=== PATIENT | female | born 1985 | race African-American/Black ===

== ENCOUNTER 2018-08-23 10:14 | Emergency (ER) | payer MEDICAID, OTHER ==
[~2018-08-23] VITALS: Ht 160 cm; Wt 64.0 kg
--- NOTE | 2018-08-23 10:58 | NUR ---
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
--- NOTE | 2018-08-23 11:06 | NUR ---
PT PRESENTED TO ED WITH MID STERNAL CHEST PAIN SINCE TODAY. PT A&OX4. PT WITH HX: PERICARDITIS A FEW MONTHS AGO. PT PLACED IN ROOM AND PLACED ON BP, CARDIAC AND CONT. PULSE OXIMETER. PT STATES PAIN WITH DEEP INSPIRATION. ASSESSMENT COMPLETED. AWAITING MD. REPORT GIVEN TO TELLO CARBAJAL.
[2018-08-23 11:21] LABS: BASOPHILS # (AUTO) 0.05 x10^3/uL (0-0.1); BASOPHILS % (AUTO) 1 % (0-1); EOSINOPHILS # (AUTO) 0.11 x10^3/uL (0-0.4); EOSINOPHILS % (AUTO) 1 % (1-7); LYMPHOCYTES # (AUTO) 2.06 x10^3/uL (1-3.4); LYMPHOCYTES % (AUTO) 23 % (22-44); MD NO; MEAN CORPUSCULAR HGB CONC 33.9 g/dL (32.4-35.8); MEAN CORPUSCULAR VOLUME 91.4 fL (80-100); MEAN PLATELET VOLUME 7.6 fL (7.4-10.4); MONOCYTES % (AUTO) 6 % (2-9); NEUTROPHILS # (AUTO) 6.28 x10^3/uL (1.8-6.8); NEUTROPHILS % (AUTO) 70 % (42-75); PLATELET COUNT 321 x10^3/uL (130-400); RED CELL DISTRIBUTION WIDTH 12.8 % (9.6-15.2)
[2018-08-23 11:25] LABS: ALBUMIN 4.1 g/dL (3.4-5.0); ANION GAP 7 mmol/L (5-15); CALCIUM 8.7 mg/dL (8.5-10.1); CHLORIDE 110 mmol/L (98-107); CREATININE 0.95 mg/dL (0.55-1.02)
[2018-08-23 11:28] LABS: TROPONIN I < 0.015 ng/mL (0.000-0.045)
[2018-08-23] MEDS ORDERED: CYCLOBENZAPRINE 10 MG TABLET PO ONE (11:30)
[2018-08-23] MEDS ORDERED: KETOROLAC 30 MG/1 ML IM ONE (11:30)
[2018-08-23] MEDS ORDERED: KETOROLAC 30 MG/1 ML ONE (11:36)
[2018-08-23] MEDS ORDERED: CYCLOBENZAPRINE 10 MG TABLET ONE (11:36)
[2018-08-23 12:50] VITALS: BP 104/62
== END 2018-08-23 12:52 | disposition home or self-care (01) ==
LOC: ED 12:24
DX: R07.89 Other chest pain (principal); Z87.891 Personal history of nicotine dependence
CPT/HCPCS: 36415; 71045; 80048; 82040; 84484; 85025; 93005; 96372; 99284; J1885

== ENCOUNTER 2018-11-25 23:20 | Emergency (ER) | payer OTHER ==
--- NOTE | 2018-11-25 23:38 | NUR ---
PT SITTING UP ON EDGE OF BED CRYING. GOT HOME FROM WORK TONIGHT AND DEVELOPED MIDSTERNAL CHEST PAIN RADIATING UNDER LEFT BREAST. STATES SHE WAS AT [facility] IN APRIL WITH ENDOCARDITIS. PT PLACED ON COMMUNICATION COORDINATOR Addendum: 11/25/18 at 2342 by FRANK ERROR WITH PREVIOUS CHARTING PT WAS AT [facility] WITH PERICARDITIS.
[2018-11-25] MEDS ORDERED: LORazepam 2 MG/ML, 1ML ONE (23:49)
[2018-11-25] MEDS ORDERED: KETOROLAC 30 MG/1 ML ONE (23:49)
[2018-11-26] MEDS ORDERED: LORazepam 2 MG/ML, 1ML IVPush ONE
[2018-11-26] MEDS ORDERED: KETOROLAC 30 MG/1 ML IVPush ONE
--- NOTE | 2018-11-26 00:02 | NUR ---
PT MEDICATED PER EMAR.
[2018-11-26 00:18] LABS: BASOPHILS # (AUTO) 0.03 x10^3/uL (0-0.1); BASOPHILS % (AUTO) 0 % (0-1); EOSINOPHILS # (AUTO) 0.15 x10^3/uL (0-0.4); EOSINOPHILS % (AUTO) 1 % (1-7); LYMPHOCYTES # (AUTO) 2.46 x10^3/uL (1-3.4); LYMPHOCYTES % (AUTO) 20 % (22-44); MD NO; MEAN CORPUSCULAR HEMOGLOBIN 31.4 pg (27.0-34.8); MEAN CORPUSCULAR HGB CONC 33.1 g/dL (32.4-35.8); MEAN CORPUSCULAR VOLUME 94.7 fL (80-100); MEAN PLATELET VOLUME 7.8 fL (7.4-10.4); MONOCYTES # (AUTO) 0.63 x10^3/uL (0.2-0.8); MONOCYTES % (AUTO) 5 % (2-9); NEUTROPHILS % (AUTO) 73 % (42-75); PLATELET COUNT 238 x10^3/uL (130-400); RED BLOOD COUNT 4.93 x10^6/uL (3.82-5.3)
--- NOTE | 2018-11-26 00:48 | NUR ---
PT SLEEPING. VSS.
[2018-11-26 00:52] LABS: ALANINE AMINOTRANSFERASE 21 U/L (12-78); ANION GAP 7 mmol/L (5-15); CALCIUM 8.4 mg/dL (8.5-10.1); CHLORIDE 110 mmol/L (98-107)
[2018-11-26 01:09] LABS: ALKALINE PHOSPHATASE 38 U/L (45-117); BILIRUBIN,TOTAL 0.2 mg/dL (0.2-1.0); CREATININE 1.07 mg/dL (0.55-1.02); TOTAL PROTEIN 6.8 g/dL (6.4-8.2); TROPONIN I < 0.015 ng/mL (0.000-0.045)
[2018-11-26 02:47] VITALS: BP 116/64
== END 2018-11-26 02:48 | disposition home or self-care (01) ==
LOC: ED 23:35
DX: R07.89 Other chest pain (principal); F41.1 Generalized anxiety disorder; F17.200 Nicotine dependence, unspecified, uncomplicated
CPT/HCPCS: 36415; 71045; 80053; 83690; 84484; 84703; 85025; 93005; 96374; 96375; 99284; J1885; J2060

== ENCOUNTER → 2020-05-26 | Outpatient (CLI) | payer OTHER ==
[~2020-05-26] MED LIST: MULT-516 PO
== END | disposition home or self-care (01) ==
LOC: STAR 08:44
PROVIDERS: ATTEND Obstetrics & Gynecology Female Pelvic Medicine and Reconstructive Surgery
DX: Z20.828 Contact with and (suspected) exposure to other viral communicable diseases (principal); N94.10 Unspecified dyspareunia; R10.2 Pelvic and perineal pain; N94.6 Dysmenorrhea, unspecified; N93.9 Abnormal uterine and vaginal bleeding, unspecified; D25.0 Submucous leiomyoma of uterus
CPT/HCPCS: 87635

== ENCOUNTER 2020-05-31 06:35 | Day surgery (SDC) | payer OTHER ==
[~2020-05-31] VITALS: Ht 162.6 cm; Wt 65.4 kg
[~2020-05-31 06:35] MED LIST changes: +BUPIVACAINE/PF 0.25% ONE
[2020-05-31 07:36] VITALS: BP 121/84
[2020-05-31] MEDS ORDERED: CHLORHEXIDINE 15 ML UDC ONE (07:40)
[2020-05-31] MEDS ORDERED: CHLORHEXIDINE 15 ML UDC MM ONE (08:00)
[2020-05-31] MEDS ORDERED: LACTATED RINGERS 1,000 ML IV SCH (08:00)
[2020-05-31 08:31] LABS: HCG UR SG 1.023 (1.003-1.030)
[2020-05-31] MEDS ORDERED: FENTANYL PF 250 MCG/5ML ONE (09:24)
[2020-05-31] MEDS ORDERED: MIDAZOLAM 1 MG/ML, 2ML ONE (09:24)
[2020-05-31] MEDS ORDERED: LORazepam 2 MG/ML, 1ML IVPush PRN (10:30)
[2020-05-31] MEDS ORDERED: ONDANSETRON 2MG/ML, 2ML IVPush PRN (10:30)
[2020-05-31] MEDS ORDERED: PROMETHAZINE 25 MG SUPP PR PRN (10:30)
[2020-05-31] MEDS ORDERED: PROMETHAZINE 25 MG/ML, 1ML IVPush PRN (10:30)
[2020-05-31] MEDS ORDERED: HYDROmorphone 1 MG/ML, 1ML INJ IVPush PRN (10:30)
[2020-05-31] MEDS ORDERED: ACETAMINOPHEN 325 MG TABLET PO PRN (10:30)
[2020-05-31] MEDS ORDERED: DEXAMETHASONE 4 MG/ML, 1ML ONE (10:49)
[2020-05-31] MEDS ORDERED: GLYCOPYRROLATE 0.2MG/1ML, 5ML ONE (10:49)
[2020-05-31] MEDS ORDERED: NEOSTIGMINE 1 MG/ML, 10ML ONE (10:49)
[2020-05-31] MEDS ORDERED: PROPOFOL 10 MG/ML, 20ML ONE (10:49)
[2020-05-31] MEDS ORDERED: ONDANSETRON 2MG/ML, 2ML ONE ×2 (10:49→11:11)
[2020-05-31] MEDS ORDERED: SUCCINYLCHOLINE 20 MG/ML, 10ML ONE (10:49)
[2020-05-31] MEDS ORDERED: CEFAZOLIN 1,000 MG ONE (10:49)
[2020-05-31] MEDS ORDERED: ROCURONIUM 10MG/ML,5ML ONE (10:49)
[2020-05-31] MEDS ORDERED: FENTANYL PF 100 MCG/2ML ONE ×2 (11:20→11:47)
[2020-05-31] MEDS: FENTANYL PF 100 MCG/2ML IV PRN ×3 (11:22→11:49)
[2020-05-31] MEDS ORDERED: METHOCARBAMOL 1,000 MG in DEXTROSE 5% 100 ML IV PRN (11:30)
[2020-05-31] MEDS ORDERED: ACETAMINOPHEN 650 MG/20.3 ML UDC ONE (11:37)
[2020-05-31] MEDS ORDERED: OXYcodone 5 MG/5 ML ORAL.SOL UDC ONE (11:38)
[2020-05-31] MEDS: OXYcodone 5 MG/5 ML ORAL.SOL UDC PO PRN ×2 (11:40→15:46)
[2020-05-31] MEDS ORDERED: KETOROLAC 30 MG/1 ML ONE (11:56)
[2020-05-31] MEDS ORDERED: KETOROLAC 30 MG/1 ML IVPush PRN (12:00)
== END 2020-05-31 18:55 | disposition home or self-care (01) ==
LOC: OUT 06:35
PROVIDERS: ATTEND Obstetrics & Gynecology Female Pelvic Medicine and Reconstructive Surgery
DX: D25.1 Intramural leiomyoma of uterus (principal); N92.1 Excessive and frequent menstruation with irregular cycle; N94.6 Dysmenorrhea, unspecified; N72 Inflammatory disease of cervix uteri; N88.8 Other specified noninflammatory disorders of cervix uteri; N81.89 Other female genital prolapse; N73.6 Female pelvic peritoneal adhesions (postinfective); N94.10 Unspecified dyspareunia; R10.2 Pelvic and perineal pain; Z98.890 Other specified postprocedural states
CPT/HCPCS: 58552; 81025; 88307; J0690; J1100; J1170; J1885; J2250; J2405; J2704; J2710; J2800; J3010; J7120; J0330

== ENCOUNTER 2020-07-06 12:41 | Emergency (ER) | payer OTHER ==
[~2020-07-06] VITALS: Ht 160 cm; Wt 65.0 kg
[~2020-07-06 12:41] MED LIST changes: -BUPIVACAINE/PF 0.25% ONE
[2020-07-06 13:42] LABS: BASOPHILS % (AUTO) 1 % (0-1); EOSINOPHILS % (AUTO) 3 % (1-7); LYMPHOCYTES % (AUTO) 30 % (22-44); MEAN CORPUSCULAR HEMOGLOBIN 30.6 pg (27.0-34.8); MEAN CORPUSCULAR HGB CONC 32.9 g/dL (32.4-35.8); MEAN PLATELET VOLUME 7.2 fL (7.4-10.4); MONOCYTES % (AUTO) 4 % (2-9); NEUTROPHILS % (AUTO) 62 % (42-75); PLATELET COUNT 338 x10^3/uL (130-400); RED BLOOD COUNT 4.45 x10^6/uL (3.82-5.3); RED CELL DISTRIBUTION WIDTH 12.1 % (9.6-15.2)
[2020-07-06 13:44] LABS: MD NO
[2020-07-06 13:49] LABS: ANION GAP 5 mmol/L (5-15); CALCIUM 8.9 mg/dL (8.5-10.1); CHLORIDE 110 mmol/L (98-107)
[2020-07-06 13:53] LABS: ALANINE AMINOTRANSFERASE 18 U/L (12-78); ALKALINE PHOSPHATASE 51 U/L (45-117); BILIRUBIN,TOTAL 0.3 mg/dL (0.2-1.0); CREATININE 1.01 mg/dL (0.55-1.02); TOTAL PROTEIN 7.3 g/dL (6.4-8.2)
--- NOTE | 2020-07-06 17:27 | NUR ---
center lead consultant: pt from lobby to 28
[2020-07-06] MEDS ORDERED: MORPHINE SULFATE 4 MG/ML, 1ML ONE ×2 (17:58→19:54)
[2020-07-06] MEDS ORDERED: ONDANSETRON 2MG/ML, 2ML ONE (17:58)
[2020-07-06] MEDS ORDERED: SODIUM CHLORIDE FLUSH 10ML SYR IVF ONE (18:00)
[2020-07-06] MEDS ORDERED: ONDANSETRON 2MG/ML, 2ML IVPush ONE (18:00)
[2020-07-06] MEDS: MORPHINE SULFATE 4 MG/ML, 1ML IVPush PRN ×2 (18:10→20:00)
[2020-07-06 18:50] VITALS: BP 122/80
[2020-07-06 18:50] LABS: MICROSCOPIC NOT IND
[2020-07-06] MEDS ORDERED: OMNIPAQUE 350 MG/ML, 100ML BOTTLE ONE (19:14)
[2020-07-06] MEDS ORDERED: CEPHALEXIN 500 MG CAPSULE ONE (20:30)
[2020-07-06] MEDS ORDERED: CEPHALEXIN 500 MG CAPSULE PO ONE (20:30)
== END 2020-07-06 21:02 | disposition home or self-care (01) ==
LOC: ED 17:54
DX: R10.33 Periumbilical pain (principal)
CPT/HCPCS: 36415; 74177; 80053; 81003; 85025; 96374; 96375; 96376; 99285; J2270; J2405; Q9967